=== PATIENT | male | born 1970 | race African-American/Black ===

== ENCOUNTER 2017-08-09 16:19 | Emergency (ER) | payer OTHER ==
[~2017-08-09] VITALS: Ht 175.3 cm; Wt 78.0 kg
[~2017-08-09 16:19] MED LIST: ASPI-825 PO; HUMLIS7525 SQ; HYDR-2924 PO; METO50 PO; PANT40TA25 PO; PHOSLOC PO
[2017-08-09] MEDS ORDERED: FOLI0.8T22 PO (16:33)
[2017-08-09 16:37] LABS: GLUCOSE,POINT OF CARE 94 MG/DL (70-110)
[2017-08-09 16:53] LABS: EOSINOPHILS % (AUTO) 1.5 % (1.0-6.0); HEMATOCRIT 38.1 % (41-53); HEMOGLOBIN 12.6 g/dL (13.5-17.5); LYMPHOCYTES # (AUTO) 1.8 K/uL (1.0-4.8); LYMPHOCYTES % (AUTO) 25.9 % (22.0-44.0); MEAN CORPUSCULAR HEMOGLOBIN 30.8 pg (26.0-34.0); MEAN CORPUSCULAR VOLUME 93 fL (80-100); MONOCYTES # (AUTO) 0.7 K/uL (0.1-1.0); MONOCYTES % (AUTO) 9.9 % (2.0-9.0); NEUTROPHILS # (AUTO) 4.4 K/uL (1.8-7.7); NEUTROPHILS % (AUTO) 61.7 % (40.0-70.0); PLATELET COUNT (AUTO) 205 K/uL (150-450); RED BLOOD CELL COUNT(AUTO) 4.08 MIL/uL (4.50-5.90); RED CELL DISTRIBUTION WIDTH 15.3 % (11.5-14.5)
[2017-08-09 17:01] LABS: ANION GAP 7 mmol/L (8-16); CALCIUM, TOTAL 9.2 mg/dL (8.8-10.5); CARBON DIOXIDE 33 mmol/L (22-29); CHLORIDE 98 mmol/L (98-107); CREATININE 5.22 mg/dL (0.60-1.30); GLOMERULAR FILTR. RATE CALC 14 mL/min (>60); GLUCOSE,RANDOM 85 mg/dL (70-110); POTASSIUM 4.2 mmol/L (3.5-5.1); SODIUM SERUM 138 mmol/L (136-145); UREA NITROGEN, BLOOD 15 mg/dL (7-18)
[2017-08-09 17:07] LABS: ALANINE AMINOTRANSFERASE 37 U/L (12-78); ALBUMIN 3.7 g/dL (3.4-5.0); ALKALINE PHOSPHATASE 144 U/L (46-116); ASPARTATE AMINOTRANSFERASE 14 U/L (15-37); BILIRUBIN,TOTAL 0.6 mg/dL (0.1-1.0); TOTAL PROTEIN, SERUM 8.4 g/dL (6.4-8.2)
[2017-08-09 17:12] LABS: GLUCOSE,POINT OF CARE 90 MG/DL (70-110)
[2017-08-09 17:48] LABS: GLUCOSE,POINT OF CARE 121 MG/DL (70-110)
[2017-08-09 19:34] VITALS: BP 185/102
== END 2017-08-09 20:02 | disposition home or self-care (01) ==
LOC: EMS 16:20
DX: T38.3X5A Adverse effect of insulin and oral hypoglycemic [antidiabetic] drugs, initial encounter (principal); E11.649 Type 2 diabetes mellitus with hypoglycemia without coma; E11.22 Type 2 diabetes mellitus with diabetic chronic kidney disease; I12.0 Hypertensive chronic kidney disease with stage 5 chronic kidney disease or end stage renal disease; N18.6 End stage renal disease; I10 Essential (primary) hypertension; Y92.89 Other specified places as the place of occurrence of the external cause; Z99.2 Dependence on renal dialysis; Z79.4 Long term (current) use of insulin
CPT/HCPCS: 36415; 80053; 82948; 82962; 85025; 93005; 99285; G0480

== ENCOUNTER 2019-03-18 15:23 | Emergency (ER) | payer OTHER ==
[~2019-03-18] VITALS: Ht 177.8 cm; Wt 89.3 kg
[~2019-03-18 15:23] MED LIST changes: +FOLI0.8T22 PO; -PANT40TA25 PO; -PHOSLOC PO
[2019-03-18 17:45] VITALS: BP 127/74
== END 2019-03-18 17:59 | disposition home or self-care (01) ==
LOC: EMS 15:24
DX: R60.0 Localized edema (principal); I12.0 Hypertensive chronic kidney disease with stage 5 chronic kidney disease or end stage renal disease; E11.22 Type 2 diabetes mellitus with diabetic chronic kidney disease; N18.6 End stage renal disease; Z99.2 Dependence on renal dialysis; Z79.82 Long term (current) use of aspirin; Z79.4 Long term (current) use of insulin; Z48.00 Encounter for change or removal of nonsurgical wound dressing

== ENCOUNTER 2024-06-12 06:28 | Emergency (ER) | payer OTHER ==
[~2024-06-12] VITALS: Ht 175.3 cm; Wt 90.0 kg
[~2024-06-12 06:28] MED LIST changes: -HYDR-2924 PO; +HYDR50TA36 PO
[2024-06-12 06:57] VITALS: BP 100/66; PULSE 68; RESP 16; TEMP 98.2; O2SAT 98
[2024-06-12] MEDS: ACETAMINOPHEN 500 MG TABLET PO ONE (08:27)
[2024-06-12] MEDS ORDERED: ACET-3385 PO (08:54)
[2024-06-12] MEDS: BACITRACIN 0.9 GM PACKET OINTMENT TP ONE (09:15)
== END 2024-06-12 09:21 | disposition home or self-care (01) ==
LOC: EMS 06:37
DX: S00.83XA Contusion of other part of head, initial encounter (principal); E11.22 Type 2 diabetes mellitus with diabetic chronic kidney disease; I12.0 Hypertensive chronic kidney disease with stage 5 chronic kidney disease or end stage renal disease; G44.309 Post-traumatic headache, unspecified, not intractable; N18.6 End stage renal disease; Z79.4 Long term (current) use of insulin; Z79.899 Other long term (current) drug therapy; Z99.2 Dependence on renal dialysis; Z98.890 Other specified postprocedural states; W01.0XXA Fall on same level from slipping, tripping and stumbling without subsequent striking against object, initial encounter; Y93.89 Activity, other specified; Y92.89 Other specified places as the place of occurrence of the external cause; Y99.8 Other external cause status
CPT/HCPCS: 70450; 70486; 72125; 99284

== ENCOUNTER 2024-12-05 06:22 | Inpatient (IN) | payer OTHER ==
[~2024-12-05] VITALS: Ht 175.3 cm; Wt 83.1 kg
[~2024-12-05 06:22] MED LIST changes: +ACET-3385 PO
[2024-12-05] MEDS: ONDANSETRON HCL 4 MG/2 ML VIAL IVP ONE (06:57)
[2024-12-05] MEDS: CEFEPIME HCL 2 GM in DEXTROSE 5%-WATER 50 ML IV ONE (07:02)
[2024-12-05 07:07] LABS: PLATELET COUNT (AUTO) 365 K/uL (150-450); RED BLOOD CELL COUNT(AUTO) 4.16 MIL/uL (4.50-5.90); RED CELL DISTRIBUTION WIDTH 15.5 % (11.5-14.5); WHITE BLOOD COUNT (AUTO) 15.7 K/uL (4.5-11.0)
[2024-12-05 07:53] LABS: ERYTHROCYTE SEDIMENTATION RATE > 130 MM/HR (0-20)
[2024-12-05] MEDS: VANCOMYCIN 1.25 GM/WATER(PEG) 250 ML IV ONE (07:56)
[2024-12-05 08:15] LABS: CALCIUM, TOTAL 10.9 mg/dL (8.8-10.5); CREATININE 8.61 mg/dL (0.60-1.30); GLOMERULAR FILTR. RATE CALC 8.0 mL/min (>60); GLUCOSE,RANDOM 68.0 mg/dL (70-110); SODIUM SERUM 133.0 mmol/L (136-145); UREA NITROGEN, BLOOD 33.0 mg/dL (7-18)
[2024-12-05 08:21] LABS: ASPARTATE AMINOTRANSFERASE 11 U/L (15-37); C-REACTIVE PROTEIN QUANT 19.56 mg/dL (0.00-0.30); TOTAL PROTEIN, SERUM 8.8 g/dL (6.4-8.2)
[2024-12-05 08:28] LABS: LACTIC ACID 2.1 mmol/L (0.4-2.0)
[2024-12-05 08:36] LABS: GLUCOMETER DEV NAME(LOC) ERT.7; GLUCOSE,POINT OF CARE 70 MG/DL (70-110)
[2024-12-05] MEDS ORDERED: ZOLPIDEM TARTRATE 5 MG TABLET PO PRN (09:00)
[2024-12-05] MEDS ORDERED: MAGNESIUM HYDROXIDE SUSPENSION 30 ML UDCUP PO PRN (09:00)
[2024-12-05] MEDS: INSULIN LISPRO PROTAM-LISPRO HUM 75/25 UNITS/ML SQ SCH (09:00)
[2024-12-05] MEDS ORDERED: ACETAMINOPHEN 325 MG TABLET PO PRN (09:00)
[2024-12-05] MEDS ORDERED: HYDROCODONE/ACETAMINOPHEN 5-325 MG TABLET PO PRN (09:00)
[2024-12-05] MEDS ORDERED: MORPHINE SULFATE 2 MG/ML SYRINGE IVP PRN (09:00)
[2024-12-05] MEDS ORDERED: BISACODYL 10 MG RECTAL RECTAL SUPPOSITORY PR PRN (09:00)
[2024-12-05] MEDS ORDERED: ONDANSETRON HCL 4 MG/2 ML VIAL IVP PRN (09:00)
[2024-12-05] MEDS: DOCUSATE SODIUM 100 MG CAPSULE PO SCH (09:00)
[2024-12-05] MEDS ORDERED: VANCOMYCIN 1GM/WATER(PEG/NADA) 200 ML IV PRN (09:30)
[2024-12-05] MEDS: METOPROLOL TARTRATE 50 MG TABLET PO SCH (09:56)
[2024-12-05] MEDS: PANTOPRAZOLE SODIUM 40 MG DR TABLET PO SCH (09:56)
[2024-12-05 10:06] LABS: GLUCOMETER DEV NAME(LOC) ERT.7; GLUCOSE,POINT OF CARE 79 MG/DL (70-110)
[2024-12-05] MEDS: PIPERACILLIN SODIUM/TAZOBACTAM 2.25 GM in DEXTROSE 5%-WATER 50 ML IV SCH (11:03)
[2024-12-05 12:21] VITALS: BP 115/78; PULSE 74; RESP 19; TEMP 99; O2SAT 100
[2024-12-05] MEDS: HEPARIN SODIUM,PORCINE 5,000 UNITS/ML VIAL SQ SCH (15:12)
[2024-12-05 16:00] VITALS: BP 100/59; PULSE 75; RESP 18; TEMP 99.5; O2SAT 97
[2024-12-05] MEDS ORDERED: DEXTROSE 50%-WATER 25 GM/50 ML SYRINGE IVP PRN (17:30)
[2024-12-05] MEDS: SEVELAMER CARBONATE 800 MG TABLET PO SCH (17:58)
[2024-12-05 20:00] VITALS: BP_SYST 89; BP_SYST 93; BP_SYST 99; BP_DIAS 40; BP_DIAS 51; BP_DIAS 56; PULSE 76; PULSE 77; PULSE 78; RESP 17; TEMP 99.7; O2SAT 98
[2024-12-05] MEDS: INSULIN LISPRO 100 UNITS/ML SQ PRN (21:55)
[2024-12-06] VITALS (14 sets, daily range): BP systolic 84–111; BP diastolic 42–69; PULSE 69–90; RESP 16–18; TEMP 97.8–99.1; O2SAT 96–99
[2024-12-06 06:19] LABS: PLATELET COUNT (AUTO) 303 K/uL (150-450); RED BLOOD CELL COUNT(AUTO) 3.70 MIL/uL (4.50-5.90); RED CELL DISTRIBUTION WIDTH 15.3 % (11.5-14.5); WHITE BLOOD COUNT (AUTO) 10.9 K/uL (4.5-11.0)
[2024-12-06 06:30] LABS: CALCIUM, TOTAL 10.5 mg/dL (8.8-10.5); CREATININE 10.2 mg/dL (0.60-1.30); GLOMERULAR FILTR. RATE CALC 6.0 mL/min (>60); GLUCOSE,RANDOM 199.0 mg/dL (70-110); SODIUM SERUM 130.0 mmol/L (136-145); UREA NITROGEN, BLOOD 45.0 mg/dL (7-18)
[2024-12-06] MEDS: CINACALCET HCL 30 MG TABLET PO SCH (08:31)
[2024-12-06] MEDS: VANCOMYCIN 1GM/WATER(PEG/NADA) 200 ML IV ONE (21:35)
[2024-12-07 04:45] VITALS: BP 132/83; PULSE 87; RESP 18; TEMP 98.3; O2SAT 98
[2024-12-07 06:06] LABS: GLUCOMETER DEV NAME(LOC) 4E.2; GLUCOSE,POINT OF CARE 132 MG/DL (70-110)
[2024-12-07 06:35] LABS: PLATELET COUNT (AUTO) 292 K/uL (150-450); RED BLOOD CELL COUNT(AUTO) 3.40 MIL/uL (4.50-5.90); RED CELL DISTRIBUTION WIDTH 15.7 % (11.5-14.5); WHITE BLOOD COUNT (AUTO) 10.7 K/uL (4.5-11.0)
[2024-12-07 06:50] LABS: CALCIUM, TOTAL 9.5 mg/dL (8.8-10.5); CREATININE 7.32 mg/dL (0.60-1.30); GLOMERULAR FILTR. RATE CALC 10.0 mL/min (>60); GLUCOSE,RANDOM 127.0 mg/dL (70-110); SODIUM SERUM 135.0 mmol/L (136-145); UREA NITROGEN, BLOOD 25.0 mg/dL (7-18)
[2024-12-07 07:51] VITALS: BP 110/66; PULSE 86; RESP 20; TEMP 98.8; O2SAT 99
[2024-12-07 11:50] LABS: GLUCOMETER DEV NAME(LOC) 4E.2; GLUCOSE,POINT OF CARE 109 MG/DL (70-110)
[2024-12-07 16:23] VITALS: BP 112/63; PULSE 84; RESP 20; TEMP 99.5; O2SAT 99
[2024-12-07] MEDS ORDERED: 0.9% SODIUM CHLORIDE 10 ML SYRINGE IVP ONE (16:37)
[2024-12-07] MEDS ORDERED: SODIUM CHLORIDE 0.9% 100 ML ONE (16:37)
[2024-12-07] MEDS ORDERED: IOHEXOL 350 MG/ML 100 ML VIAL ONE (16:37)
[2024-12-07 19:41] LABS: GLUCOMETER DEV NAME(LOC) 6N.2C; GLUCOSE,POINT OF CARE 106 MG/DL (70-110)
[2024-12-07 20:26] VITALS: BP 94/50; PULSE 87; RESP 18; TEMP 99.5; O2SAT 99
[2024-12-08] VITALS (13 sets, daily range): BP systolic 83–130; BP diastolic 53–79; PULSE 71–87; RESP 18–19; TEMP 97.8–99.5; O2SAT 96–100
[2024-12-08 05:56] LABS: GLUCOMETER DEV NAME(LOC) 6N.1C; GLUCOSE,POINT OF CARE 156 MG/DL (70-110)
[2024-12-08 05:56] LABS: GLUCOMETER DEV NAME(LOC) 6N.1C; GLUCOSE,POINT OF CARE 149 MG/DL (70-110)
[2024-12-08 06:19] LABS: PLATELET COUNT (AUTO) 289 K/uL (150-450); RED BLOOD CELL COUNT(AUTO) 3.32 MIL/uL (4.50-5.90); RED CELL DISTRIBUTION WIDTH 15.6 % (11.5-14.5); WHITE BLOOD COUNT (AUTO) 10.9 K/uL (4.5-11.0)
[2024-12-08 06:41] LABS: CALCIUM, TOTAL 9.8 mg/dL (8.8-10.5); CREATININE 9.9 mg/dL (0.60-1.30); GLOMERULAR FILTR. RATE CALC 7.0 mL/min (>60); GLUCOSE,RANDOM 142.0 mg/dL (70-110); SODIUM SERUM 134.0 mmol/L (136-145); UREA NITROGEN, BLOOD 40.0 mg/dL (7-18)
[2024-12-08] MEDS ORDERED: SODIUM CHLORIDE 0.9% 1,000 ML ONE (07:05)
[2024-12-08] MEDS: SODIUM CHLORIDE 0.9% 1,000 ML IV ONE (10:17)
[2024-12-08] MEDS: CHLORHEXIDINE GLUCONATE 2% TOWELETTE [2'S/6'S] TP ONE (10:17)
[2024-12-08] MEDS: ETHYL ALCOHOL 62% ANTISEPTIC NASAL SANITIZER 0.6 ML AMPUL NASAL ONE (10:17)
[2024-12-08] MEDS ORDERED: RINGERS SOLUTION,LACTATED 1,000 ML IV ONE ×2 (11:08→11:15)
[2024-12-08] MEDS: BUPIVACAINE HCL/PF 0.5% 30 ML VIAL ONE (12:30)
[2024-12-08] MEDS: BUPIVACAINE LIPOSOME/PF 1.3%-13.3MG/ML SUSP 20 ML VIAL INJ ONE (12:30)
[2024-12-08] MEDS ORDERED: MEPERIDINE-PF 25 MG/ML VIAL IVP PRN (12:45)
[2024-12-08] MEDS ORDERED: FentaNYL CITRATE PF 100 MCG/2 ML VIAL IVP PRN (12:45)
[2024-12-08] MEDS ORDERED: ONDANSETRON HCL 2 MG/ML 20 ML VIAL IV ONE (13:12)
[2024-12-08] MEDS ORDERED: PROPOFOL 1% ISO-OSM 1000 MG/100 ML BOTTLE ONE (13:12)
[2024-12-08] MEDS ORDERED: SUGAMMADEX SODIUM 200 MG/2 ML VIAL IVP ONE (13:12)
[2024-12-08] MEDS ORDERED: LIDOCAINE/PF 2% 5 ML VIAL ONE (13:12)
[2024-12-08] MEDS ORDERED: FentaNYL CITRATE PF 100 MCG/2 ML VIAL ONE (13:38)
[2024-12-08] MEDS ORDERED: MORPHINE SULFATE/PF 0.5 MG/ML 10 ML AMP ONE (13:38)
[2024-12-08] MEDS ORDERED: MIDAZOLAM HCL 2 MG/2 ML VIAL ONE (13:38)
[2024-12-08 17:57] LABS: GLUCOMETER DEV NAME(LOC) 5N.2C; GLUCOSE,POINT OF CARE 181 MG/DL (70-110)
[2024-12-08 17:57] LABS: GLUCOMETER DEV NAME(LOC) 5N.2C; GLUCOSE,POINT OF CARE 185 MG/DL (70-110)
[2024-12-08 17:57] LABS: GLUCOMETER DEV NAME(LOC) 5N.2C; GLUCOSE,POINT OF CARE 217 MG/DL (70-110)
[2024-12-08] MEDS ORDERED: OXYGEN THERAPY IH SCH (20:00)
[2024-12-08 20:10] LABS: GLUCOMETER DEV NAME(LOC) 5S.1D; GLUCOSE,POINT OF CARE 115 MG/DL (70-110)
[2024-12-08] MEDS ORDERED: SODIUM CHLORIDE 0.9% 250 ML IV ONE (20:19)
[2024-12-08 23:46] LABS: GLUCOMETER DEV NAME(LOC) 6N.1C; GLUCOSE,POINT OF CARE 97 MG/DL (70-110)
[2024-12-09] VITALS (13 sets, daily range): BP systolic 115–149; BP diastolic 65–90; PULSE 80–101; RESP 19–20; TEMP 98.8–99.7; O2SAT 98–100
[2024-12-09 07:21] LABS: GLUCOMETER DEV NAME(LOC) 6S.2; GLUCOSE,POINT OF CARE 139 MG/DL (70-110)
[2024-12-09 07:31] LABS: CALCIUM, TOTAL 10.1 mg/dL (8.8-10.5); CREATININE 6.76 mg/dL (0.60-1.30); GLOMERULAR FILTR. RATE CALC 10.0 mL/min (>60); GLUCOSE,RANDOM 135.0 mg/dL (70-110); SODIUM SERUM 137.0 mmol/L (136-145); UREA NITROGEN, BLOOD 28.0 mg/dL (7-18)
[2024-12-09 07:53] LABS: PHOSPHORUS 3.4 mg/dL (2.5-4.9)
[2024-12-09] MEDS: VANCOMYCIN 1GM/WATER(PEG/NADA) 200 ML IV ONE (12:26)
[2024-12-09] MEDS ORDERED: LIDOCAINE/PF 1% 30 ML VIAL ONE ×2 (14:35→15:04)
[2024-12-09] MEDS ORDERED: IODIXANOL 320 MG/ML 150 ML VIAL ONE (14:35)
[2024-12-09] MEDS ORDERED: SODIUM BICARBONATE 50 MEQ/50 ML VIAL ONE (14:35)
[2024-12-09] MEDS ORDERED: HEPARIN SODIUM 1000 UNITS/NS 500 ML ONE ×2 (14:35→15:06)
[2024-12-09] MEDS ORDERED: FentaNYL CITRATE PF 100 MCG/2 ML VIAL ONE (15:22)
[2024-12-09] MEDS ORDERED: MIDAZOLAM HCL 2 MG/2 ML VIAL ONE (15:22)
[2024-12-09] MEDS ORDERED: IODIXANOL 320 MG/ML 50 ML VIAL ONE (15:29)
[2024-12-09] MEDS: HEPARIN SODIUM 1000 UNITS/NS 1,000 ML IARTER ONE (15:55)
[2024-12-09] MEDS: LIDOCAINE 1% 30 ML/SOD BICARB 8.4% 4 ML SQ ONE (15:55)
[2024-12-09] MEDS: MIDAZOLAM HCL 2 MG/2 ML VIAL IVP ONE (15:56)
[2024-12-09] MEDS: IODIXANOL 320 MG/ML 50 ML VIAL IARTER ONE (15:56)
[2024-12-09] MEDS: FentaNYL CITRATE PF 100 MCG/2 ML VIAL IVP ONE (15:56)
[2024-12-09] MEDS: IODIXANOL 320 MG/ML 150 ML VIAL IARTER ONE (15:57)
[2024-12-09] MEDS: HEPARIN SODIUM,PORCINE 1,000 UNITS/ML 10 ML VIAL IVP ONE (16:10)
[2024-12-09] MEDS ORDERED: CLOPIDOGREL BISULFATE 75 MG TABLET ONE (17:16)
[2024-12-09] MEDS: CLOPIDOGREL BISULFATE 75 MG TABLET PO ONE (17:22)
[2024-12-09 19:02] LABS: GLUCOMETER DEV NAME(LOC) 5S.2D; GLUCOSE,POINT OF CARE 142 MG/DL (70-110)
[2024-12-09 19:02] LABS: GLUCOMETER DEV NAME(LOC) 5S.2D; GLUCOSE,POINT OF CARE 147 MG/DL (70-110)
[2024-12-09 19:02] LABS: GLUCOMETER DEV NAME(LOC) 5S.2D; GLUCOSE,POINT OF CARE 173 MG/DL (70-110)
[2024-12-09 21:01] LABS: GLUCOMETER DEV NAME(LOC) 6N.1C; GLUCOSE,POINT OF CARE 98 MG/DL (70-110)
[2024-12-09 22:36] LABS: GLUCOMETER DEV NAME(LOC) 6N.1C; GLUCOSE,POINT OF CARE 112 MG/DL (70-110)
[2024-12-10] VITALS (17 sets, daily range): BP systolic 95–124; BP diastolic 52–78; PULSE 79–98; RESP 18–20; TEMP 97.8–99.9; O2SAT 98–100
[2024-12-10 07:40] LABS: GLUCOMETER DEV NAME(LOC) 4E.2; GLUCOSE,POINT OF CARE 76 MG/DL (70-110)
[2024-12-10] MEDS: CLOPIDOGREL BISULFATE 75 MG TABLET PO SCH (09:00)
[2024-12-10] MEDS ORDERED: SODIUM CHLORIDE 0.9% 1,000 ML ONE (10:33)
[2024-12-10 12:26] LABS: GLUCOMETER DEV NAME(LOC) 4E.2; GLUCOSE,POINT OF CARE 133 MG/DL (70-110)
[2024-12-10] MEDS: ATORVASTATIN CALCIUM 40 MG TABLET PO SCH (14:59)
[2024-12-10 22:11] LABS: GLUCOMETER DEV NAME(LOC) 6N.1C; GLUCOSE,POINT OF CARE 124 MG/DL (70-110)
[2024-12-11 06:21] LABS: GLUCOMETER DEV NAME(LOC) 4E.2; GLUCOSE,POINT OF CARE 173 MG/DL (70-110)
[2024-12-11 06:55] VITALS: BP 123/70; PULSE 81; RESP 20; TEMP 98.9; O2SAT 100
[2024-12-11 07:30] LABS: GLUCOMETER DEV NAME(LOC) 6S.2; GLUCOSE,POINT OF CARE 107 MG/DL (70-110)
[2024-12-11 08:44] VITALS: BP 126/70; PULSE 79; RESP 18; TEMP 98.2; O2SAT 100
[2024-12-11 09:27] VITALS: PULSE 92
[2024-12-11] MEDS ORDERED: SODIUM CHLORIDE 0.9% 500 ML IV ONE (11:52)
[2024-12-11 12:30] LABS: GLUCOMETER DEV NAME(LOC) 6S.2; GLUCOSE,POINT OF CARE 130 MG/DL (70-110)
[2024-12-11] MEDS: FOLIC ACID/VIT B COMPLEX AND C TABLET PO SCH (13:45)
[2024-12-11 20:00] VITALS: BP 114/69; PULSE 86; RESP 18; TEMP 97.9; O2SAT 99
[2024-12-12 05:29] VITALS: BP 143/79; PULSE 88; RESP 18; TEMP 98.4; O2SAT 100
[2024-12-12 08:46] VITALS: BP 152/89; PULSE 88; RESP 18; TEMP 98; O2SAT 100
[2024-12-12] MEDS ORDERED: SEVE800T7 PO (11:14)
[2024-12-12] MEDS ORDERED: ATOR40TA71 PO (11:14)
[2024-12-12] MEDS ORDERED: CINA30TA5 PO (11:14)
[2024-12-12] MEDS ORDERED: FOLI0.8T54 PO (11:14)
[2024-12-12] MEDS ORDERED: CLOP75TA83 PO (11:14)
[2024-12-12] MEDS ORDERED: LINA5TAB PO (11:17)
[2024-12-12] MEDS ORDERED: VANCOMYCIN 750 MG/WATER(PEG) 150 ML IV ONE (22:00)
== END 2024-12-12 12:15 | disposition home or self-care (01) | DRG 181 ==
LOC: EMS 06:22 → EDH 08:47 → 5S 11:50 → 4E 12-06 21:12 → 6S 12-07 15:44
PROVIDERS: ADMIT Internal Medicine; ATTEND Internal Medicine
PROC: 5A1D70Z Performance of Urinary Filtration, Intermittent, Less than 6 Hours Per Day (ICD-10-PCS; 2024-12-06)
PROC: 0Y6N0ZB Detachment at Left Foot, Partial 2nd Ray, Open Approach (ICD-10-PCS; 2024-12-08)
PROC: 0Y6N0ZC Detachment at Left Foot, Partial 3rd Ray, Open Approach (ICD-10-PCS; 2024-12-08)
PROC: 0Y6N0ZD Detachment at Left Foot, Partial 4th Ray, Open Approach (ICD-10-PCS; 2024-12-08)
PROC: 0Y6N0ZF Detachment at Left Foot, Partial 5th Ray, Open Approach (ICD-10-PCS; 2024-12-08)
PROC: 5A1D70Z Performance of Urinary Filtration, Intermittent, Less than 6 Hours Per Day (ICD-10-PCS; 2024-12-08)
PROC: 0Y6N0Z9 Detachment at Left Foot, Partial 1st Ray, Open Approach (ICD-10-PCS; principal; 2024-12-08 12:20)
PROC: B4101ZZ Fluoroscopy of Abdominal Aorta using Low Osmolar Contrast (ICD-10-PCS; 2024-12-09)
PROC: 047L0Z1 Dilation of Left Femoral Artery using Drug-Coated Balloon, Open Approach (ICD-10-PCS; 2024-12-09)
PROC: B41G1ZZ Fluoroscopy of Left Lower Extremity Arteries using Low Osmolar Contrast (ICD-10-PCS; 2024-12-09)
PROC: 04CL3ZZ Extirpation of Matter from Left Femoral Artery, Percutaneous Approach (ICD-10-PCS; 2024-12-09)
PROC: 5A1D70Z Performance of Urinary Filtration, Intermittent, Less than 6 Hours Per Day (ICD-10-PCS; 2024-12-10)
DX: E11.52 Type 2 diabetes mellitus with diabetic peripheral angiopathy with gangrene (principal); I12.0 Hypertensive chronic kidney disease with stage 5 chronic kidney disease or end stage renal disease; E83.39 Other disorders of phosphorus metabolism; N18.6 End stage renal disease; M86.8X7 Other osteomyelitis, ankle and foot; E87.1 Hypo-osmolality and hyponatremia; E11.22 Type 2 diabetes mellitus with diabetic chronic kidney disease; D64.9 Anemia, unspecified; Z99.2 Dependence on renal dialysis; E11.69 Type 2 diabetes mellitus with other specified complication; E78.5 Hyperlipidemia, unspecified; E87.6 Hypokalemia; N25.81 Secondary hyperparathyroidism of renal origin; Z79.02 Long term (current) use of antithrombotics/antiplatelets; Z93.3 Colostomy status
CPT/HCPCS: 36200; 37229; 71045; 73706; 73718; 75630; 75716; 75962; 80048; 80076; 80202; 82962; 83605; 83690; 84100; 85025; 85651; 86140; 87040; 87081; 87340; 88305; 90935; 93005; 93925; 96365; 96367; 96375; 97116; 97162; 97167; 97530; 97535; 99285; C1724; C2623; G0378; J0666; J0692; J1644; J1815; J2250; J2274; J2405; J2543; J2704; J3010; J3490; J7030; J7040; J7050; J7060; J7120; Q9967; 36415-L1; 36415-TC

== ENCOUNTER 2025-01-04 10:04 | Emergency (ER) | payer OTHER ==
[~2025-01-04] VITALS: Ht 175.3 cm; Wt 86.0 kg
[~2025-01-04 10:04] MED LIST changes: -ACET-3385 PO; +ASPI-1444 PO; -ASPI-825 PO; +ATOR40TA71 PO; +CINA30TA5 PO; +CLOP75TA32 PO; -FOLI0.8T22 PO; +FOLI0.8T54 PO; +LINA5TAB PO; +SEVE800T7 PO; +[UNRECOGNIZED DRUG - REMARK] CERV
[2025-01-04 10:11] VITALS: TEMP 97.9
[2025-01-04 10:36] LABS: GLUCOMETER DEV NAME(LOC) ERT.7; GLUCOSE,POINT OF CARE 96 MG/DL (70-110)
[2025-01-04 10:58] LABS: PLATELET COUNT (AUTO) 227 K/uL (150-450); RED BLOOD CELL COUNT(AUTO) 2.66 MIL/uL (4.50-5.90); RED CELL DISTRIBUTION WIDTH 15.9 % (11.5-14.5); WHITE BLOOD COUNT (AUTO) 6.7 K/uL (4.5-11.0)
[2025-01-04 11:02] VITALS: BP 92/49; PULSE 74; RESP 16; O2SAT 95
[2025-01-04 11:06] LABS: CALCIUM, TOTAL 8.5 mg/dL (8.8-10.5); CREATININE 6.48 mg/dL (0.60-1.30); GLOMERULAR FILTR. RATE CALC 11.0 mL/min (>60); GLUCOSE,RANDOM 95.0 mg/dL (70-110); SODIUM SERUM 136.0 mmol/L (136-145); UREA NITROGEN, BLOOD 18.0 mg/dL (7-18)
== END 2025-01-04 13:42 | disposition home or self-care (01) ==
LOC: EMS 10:08
DX: S91.114D Laceration without foreign body of right lesser toe(s) without damage to nail, subsequent encounter (principal); E11.9 Type 2 diabetes mellitus without complications; I10 Essential (primary) hypertension; Z79.02 Long term (current) use of antithrombotics/antiplatelets; Z79.4 Long term (current) use of insulin; Z79.82 Long term (current) use of aspirin; Z79.84 Long term (current) use of oral hypoglycemic drugs; Z79.899 Other long term (current) drug therapy; Z99.2 Dependence on renal dialysis; X58.XXXD Exposure to other specified factors, subsequent encounter
CPT/HCPCS: 80048; 82962; 85025; 99283

== ENCOUNTER → 2025-01-13 | Emergency (ER) | payer OTHER ==
[~2025-01-13] VITALS: Ht 175.3 cm; Wt 85.0 kg
[~2025-01-13] MED LIST changes: +FLUORESCEIN SODIUM 1 MG STRIP ONE
[2025-01-13 08:05] VITALS: TEMP 98.1
[2025-01-13 08:25] LABS: GLUCOMETER DEV NAME(LOC) ERT.7; GLUCOSE,POINT OF CARE 67 MG/DL (70-110)
[2025-01-13 08:58] VITALS: BP 119/65; PULSE 76; RESP 16; O2SAT 99
[2025-01-13 09:16] LABS: GLUCOMETER DEV NAME(LOC) ER.7; GLUCOSE,POINT OF CARE 70 MG/DL (70-110)
[2025-01-13] MEDS: HYDROGEN PEROXIDE 3% 118 ML SOLUTION TP ONE (09:47)
[2025-01-13] MEDS: BACITRACIN 0.9 GM PACKET OINTMENT TP ONE (09:47)
== END | disposition still patient (30) ==
LOC: EMS 08:02
DX: M86.8X7 Other osteomyelitis, ankle and foot (principal); E11.69 Type 2 diabetes mellitus with other specified complication; I10 Essential (primary) hypertension; Z79.02 Long term (current) use of antithrombotics/antiplatelets; Z79.4 Long term (current) use of insulin; Z79.82 Long term (current) use of aspirin; Z79.84 Long term (current) use of oral hypoglycemic drugs; Z79.899 Other long term (current) drug therapy; Z99.2 Dependence on renal dialysis; Z98.890 Other specified postprocedural states
CPT/HCPCS: 82962; 99283

== ENCOUNTER 2025-01-20 10:13 | Inpatient (IN) | payer OTHER ==
[~2025-01-20] VITALS: Ht 175.3 cm; Wt 93.5 kg
[~2025-01-20 10:13] MED LIST changes: -FLUORESCEIN SODIUM 1 MG STRIP ONE
[2025-01-20 10:51] LABS: GLUCOMETER DEV NAME(LOC) ERT.7; GLUCOSE,POINT OF CARE 82 MG/DL (70-110)
[2025-01-20 10:55] LABS: PLATELET COUNT (AUTO) 249 K/uL (150-450); RED BLOOD CELL COUNT(AUTO) 3.58 MIL/uL (4.50-5.90); RED CELL DISTRIBUTION WIDTH 15.4 % (11.5-14.5); WHITE BLOOD COUNT (AUTO) 6.7 K/uL (4.5-11.0)
[2025-01-20 11:04] LABS: CALCIUM, TOTAL 8.4 mg/dL (8.8-10.5); CREATININE 6.45 mg/dL (0.60-1.30); GLOMERULAR FILTR. RATE CALC 11 mL/min (>60); GLUCOSE,RANDOM 96 mg/dL (70-110); SODIUM SERUM 137 mmol/L (136-145); UREA NITROGEN, BLOOD 23 mg/dL (7-18)
[2025-01-20 11:10] LABS: ASPARTATE AMINOTRANSFERASE 15.0 U/L (15-37); CREATINE KINASE, TOTAL ONLY 62.0 U/L (39-308); TOTAL PROTEIN, SERUM 8.9 g/dL (6.4-8.2)
[2025-01-20 11:11] LABS: TROPONIN I-HIGH SENSITIVITY 9 ng/L (<76)
[2025-01-20] MEDS ORDERED: DEXTROSE 50%-WATER 25 GM/50 ML SYRINGE IVP PRN (14:00)
[2025-01-20] MEDS ORDERED: 0.9% SODIUM CHLORIDE 10 ML SYRINGE IVP PRN (14:00)
[2025-01-20] MEDS ORDERED: ONDANSETRON HCL 4 MG/2 ML VIAL IVP PRN (14:00)
[2025-01-20] MEDS ORDERED: INSULIN LISPRO 100 UNITS/ML SQ PRN (14:00)
[2025-01-20 14:35] LABS: CALCIUM, TOTAL 8.6 mg/dL (8.8-10.5); CREATININE 6.81 mg/dL (0.60-1.30); GLOMERULAR FILTR. RATE CALC 10 mL/min (>60); GLUCOSE,RANDOM 89 mg/dL (70-110); SODIUM SERUM 136 mmol/L (136-145); UREA NITROGEN, BLOOD 24 mg/dL (7-18)
[2025-01-20 14:40] LABS: ASPARTATE AMINOTRANSFERASE 14 U/L (15-37); LACTATE DEHYDROGENASE 217 U/L (85-227); TOTAL PROTEIN, SERUM 9.6 g/dL (6.4-8.2)
[2025-01-20 14:45] LABS: LACTIC ACID 0.5 mmol/L (0.4-2.0)
[2025-01-20] MEDS: SODIUM CHLORIDE 0.9% 250 ML IV ONE (14:58)
[2025-01-20] MEDS: HEPARIN SODIUM,PORCINE 5,000 UNITS/ML VIAL SQ SCH (15:54)
[2025-01-20 16:19] LABS: TROPONIN I-HIGH SENSITIVITY 8 ng/L (<76)
[2025-01-20] MEDS ORDERED: VANCOMYCIN HCL 1 GM/D5% WATER 200 ML IV PRN (19:15)
[2025-01-20 20:25] LABS: GLUCOMETER DEV NAME(LOC) ER.7; GLUCOSE,POINT OF CARE 90 MG/DL (70-110)
[2025-01-20] MEDS: DOCUSATE SODIUM 100 MG CAPSULE PO SCH (21:00)
[2025-01-20 21:05] VITALS: BP 111/84; PULSE 94; RESP 18; TEMP 98.6; O2SAT 97
[2025-01-20] MEDS: VANCOMYCIN 1GM/WATER(PEG/NADA) 200 ML IV ONE (21:17)
[2025-01-20] MEDS ORDERED: SODIUM CHLORIDE 0.9% 250 ML IV ONE (21:20)
[2025-01-20 22:00] LABS: TROPONIN I-HIGH SENSITIVITY 8 ng/L (<76)
[2025-01-21] VITALS (13 sets, daily range): BP systolic 86–124; BP diastolic 55–85; PULSE 73–84; RESP 17–18; TEMP 98.1–98.4; O2SAT 95–100
[2025-01-21 06:06] LABS: PLATELET COUNT (AUTO) 217 K/uL (150-450); RED BLOOD CELL COUNT(AUTO) 3.22 MIL/uL (4.50-5.90); RED CELL DISTRIBUTION WIDTH 15.6 % (11.5-14.5); WHITE BLOOD COUNT (AUTO) 5.8 K/uL (4.5-11.0)
[2025-01-21 06:11] LABS: GLUCOMETER DEV NAME(LOC) 5N.2C; GLUCOSE,POINT OF CARE 76 MG/DL (70-110)
[2025-01-21 06:24] LABS: CALCIUM, TOTAL 8.3 mg/dL (8.8-10.5); CREATININE 8.03 mg/dL (0.60-1.30); GLOMERULAR FILTR. RATE CALC 9.0 mL/min (>60); GLUCOSE,RANDOM 76.0 mg/dL (70-110); SODIUM SERUM 137.0 mmol/L (136-145); UREA NITROGEN, BLOOD 33.0 mg/dL (7-18)
[2025-01-21 06:40] LABS: TROPONIN I-HIGH SENSITIVITY 8 ng/L (<76)
[2025-01-21] MEDS: SEVELAMER CARBONATE 800 MG TABLET PO SCH (08:48)
[2025-01-21] MEDS: CINACALCET HCL 30 MG TABLET PO SCH (08:48)
[2025-01-21] MEDS: CLOPIDOGREL BISULFATE 75 MG TABLET PO SCH (08:49)
[2025-01-21] MEDS: FOLIC ACID/VIT B COMPLEX AND C TABLET PO SCH (08:49)
[2025-01-21] MEDS: ASPIRIN 81 MG DR TABLET PO SCH (08:49)
[2025-01-21] MEDS: ATORVASTATIN CALCIUM 40 MG TABLET PO SCH (08:49)
[2025-01-21] MEDS ORDERED: SODIUM CHLORIDE 0.9% 2,000 ML ONE (10:24)
[2025-01-21 16:56] LABS: GLUCOMETER DEV NAME(LOC) 5N.2C; GLUCOSE,POINT OF CARE 119 MG/DL (70-110)
[2025-01-21 18:16] LABS: GLUCOMETER DEV NAME(LOC) 5N.2C; GLUCOSE,POINT OF CARE 119 MG/DL (70-110)
[2025-01-21] MEDS: ACETAMINOPHEN 325 MG TABLET PO PRN (18:17)
[2025-01-21] MEDS ORDERED: CINA30TA32 PO (20:19)
[2025-01-21] MEDS ORDERED: AMLO10TA55 PO (20:19)
[2025-01-21] MEDS ORDERED: PIPERACILLIN SODIUM/TAZOBACTAM 0.75 GM in DEXTROSE 5%-WATER 50 ML IV PRN (20:30)
[2025-01-21] MEDS: ALBUMIN HUMAN 25%-25GM/100ML 100 ML IV ONE (21:43)
[2025-01-21] MEDS: PIPERACILLIN SODIUM/TAZOBACTAM 2.25 GM in DEXTROSE 5%-WATER 50 ML IV SCH (22:00)
[2025-01-22] VITALS (7 sets, daily range): BP systolic 102–139; BP diastolic 59–94; PULSE 69–89; RESP 17–22; TEMP 97.7–98.6; O2SAT 94–100
[2025-01-22 07:20] LABS: CALCIUM, TOTAL 8.9 mg/dL (8.8-10.5); CREATININE 6.22 mg/dL (0.60-1.30); GLOMERULAR FILTR. RATE CALC 11.0 mL/min (>60); GLUCOSE,RANDOM 83.0 mg/dL (70-110); SODIUM SERUM 138.0 mmol/L (136-145); UREA NITROGEN, BLOOD 25.0 mg/dL (7-18)
[2025-01-22] MEDS: CLINDAMYCIN 900 MG/D5% WATER 50 ML IV SCH (07:46)
[2025-01-22] MEDS ORDERED: -POST HEMODIALYSIS NOTE- MISC SCH (09:00)
[2025-01-22 12:16] LABS: GLUCOMETER DEV NAME(LOC) 5N.2C; GLUCOSE,POINT OF CARE 88 MG/DL (70-110)
[2025-01-22 12:16] LABS: GLUCOMETER DEV NAME(LOC) 5N.2C; GLUCOSE,POINT OF CARE 94 MG/DL (70-110)
[2025-01-22 12:16] LABS: GLUCOMETER DEV NAME(LOC) 5N.2C; GLUCOSE,POINT OF CARE 135 MG/DL (70-110)
[2025-01-22 20:25] LABS: GLUCOMETER DEV NAME(LOC) 5N.2C; GLUCOSE,POINT OF CARE 97 MG/DL (70-110)
[2025-01-23] VITALS (7 sets, daily range): BP systolic 107–123; BP diastolic 9–76; PULSE 14–97; RESP 14–18; TEMP 97–98.9; O2SAT 99–100
[2025-01-23 03:51] LABS: GLUCOMETER DEV NAME(LOC) 5S.1E; GLUCOSE,POINT OF CARE 136 MG/DL (70-110)
[2025-01-23] MEDS ORDERED: SODIUM CHLORIDE 0.9% 1,000 ML ONE (07:32)
[2025-01-23] MEDS: ETHYL ALCOHOL 62% ANTISEPTIC NASAL SANITIZER 0.6 ML AMPUL NASAL ONE (07:49)
[2025-01-23] MEDS: CHLORHEXIDINE GLUCONATE 2% TOWELETTE [2'S/6'S] TP ONE (07:50)
[2025-01-23] MEDS: LIDOCAINE/PF 1% 30 ML VIAL ONE (08:15)
[2025-01-23] MEDS: BUPIVACAINE HCL/PF 0.25% 30 ML VIAL ONE (08:15)
[2025-01-23 08:31] LABS: GLUCOMETER DEV NAME(LOC) 5S.1E; GLUCOSE,POINT OF CARE 87 MG/DL (70-110)
[2025-01-23] MEDS ORDERED: PROPOFOL 1% ISO-OSM 1000 MG/100 ML BOTTLE ONE (12:00)
[2025-01-23] MEDS ORDERED: PROPOFOL 1% 20 ML VIAL IVP ONE (12:00)
[2025-01-23] MEDS ORDERED: LIDOCAINE/PF 2% 5 ML SYRINGE IVP ONE (12:00)
[2025-01-23 18:06] LABS: GLUCOMETER DEV NAME(LOC) 5S.1E; GLUCOSE,POINT OF CARE 113 MG/DL (70-110)
[2025-01-23 18:06] LABS: GLUCOMETER DEV NAME(LOC) 5S.1E; GLUCOSE,POINT OF CARE 119 MG/DL (70-110)
[2025-01-23] MEDS ORDERED: SODIUM CHLORIDE 0.9% 500 ML IV ONE (23:18)
[2025-01-24] VITALS (13 sets, daily range): BP systolic 113–139; BP diastolic 66–95; PULSE 79–91; RESP 18–20; TEMP 98–98.6; O2SAT 97–100
[2025-01-24 11:15] LABS: GLUCOMETER DEV NAME(LOC) 5S.1E; GLUCOSE,POINT OF CARE 105 MG/DL (70-110)
[2025-01-24 20:01] LABS: GLUCOMETER DEV NAME(LOC) 6N.1C; GLUCOSE,POINT OF CARE 91 MG/DL (70-110)
[2025-01-24 20:01] LABS: GLUCOMETER DEV NAME(LOC) 6N.1C; GLUCOSE,POINT OF CARE 122 MG/DL (70-110)
[2025-01-24 20:01] LABS: GLUCOMETER DEV NAME(LOC) 6N.1C; GLUCOSE,POINT OF CARE 133 MG/DL (70-110)
[2025-01-24 20:36] LABS: GLUCOMETER DEV NAME(LOC) 6N.1C; GLUCOSE,POINT OF CARE 143 MG/DL (70-110)
[2025-01-25 05:00] VITALS: BP 111/68; PULSE 86; RESP 18; TEMP 98.1; O2SAT 96
[2025-01-25 06:11] LABS: GLUCOMETER DEV NAME(LOC) 6N.1C; GLUCOSE,POINT OF CARE 84 MG/DL (70-110)
[2025-01-25 06:34] LABS: PLATELET COUNT (AUTO) 216 K/uL (150-450); RED BLOOD CELL COUNT(AUTO) 3.12 MIL/uL (4.50-5.90); RED CELL DISTRIBUTION WIDTH 15.5 % (11.5-14.5); WHITE BLOOD COUNT (AUTO) 5.8 K/uL (4.5-11.0)
[2025-01-25 06:35] LABS: ASPARTATE AMINOTRANSFERASE 13.0 U/L (15-37); C-REACTIVE PROTEIN QUANT 0.27 mg/dL (0.00-0.30); CALCIUM, TOTAL 8.5 mg/dL (8.8-10.5); CREATININE 7.32 mg/dL (0.60-1.30); GLOMERULAR FILTR. RATE CALC 10.0 mL/min (>60); GLUCOSE,RANDOM 77.0 mg/dL (70-110); SODIUM SERUM 135.0 mmol/L (136-145); TOTAL PROTEIN, SERUM 7.7 g/dL (6.4-8.2); UREA NITROGEN, BLOOD 32.0 mg/dL (7-18)
[2025-01-25 08:41] VITALS: BP 108/63; PULSE 82; RESP 17; TEMP 97.3; O2SAT 95
[2025-01-25 16:36] VITALS: BP 126/70; PULSE 92; RESP 18; TEMP 98.4; O2SAT 100
[2025-01-25 19:50] VITALS: BP 97/60; PULSE 93; RESP 18; TEMP 98.6; O2SAT 98
[2025-01-25 22:01] LABS: GLUCOMETER DEV NAME(LOC) 6N.2C; GLUCOSE,POINT OF CARE 139 MG/DL (70-110)
[2025-01-25 23:36] LABS: GLUCOMETER DEV NAME(LOC) 6N.1C; GLUCOSE,POINT OF CARE 117 MG/DL (70-110)
[2025-01-25 23:36] LABS: GLUCOMETER DEV NAME(LOC) 6N.1C; GLUCOSE,POINT OF CARE 128 MG/DL (70-110)
[2025-01-26] VITALS (13 sets, daily range): BP systolic 114–158; BP diastolic 71–100; PULSE 80–98; RESP 18–20; TEMP 98.1–98.2; O2SAT 99–100
[2025-01-26 06:50] LABS: GLUCOMETER DEV NAME(LOC) 6N.1C; GLUCOSE,POINT OF CARE 85 MG/DL (70-110)
[2025-01-26] MEDS: CASPOFUNGIN ACETATE 70 MG in SODIUM CHLORIDE 0.9% 250 ML IV ONE (17:32)
[2025-01-26 18:51] LABS: GLUCOMETER DEV NAME(LOC) 6N.1C; GLUCOSE,POINT OF CARE 116 MG/DL (70-110)
[2025-01-26] MEDS: SULFAMETHOX/TRIMETH DS 800-160 MG/TABLET PO ONE (21:35)
[2025-01-26 22:45] LABS: GLUCOMETER DEV NAME(LOC) 6N.2C; GLUCOSE,POINT OF CARE 134 MG/DL (70-110)
[2025-01-27 05:37] VITALS: BP 128/78; PULSE 83; RESP 19; TEMP 97.9; O2SAT 100
[2025-01-27 06:10] LABS: GLUCOMETER DEV NAME(LOC) 6N.2C; GLUCOSE,POINT OF CARE 108 MG/DL (70-110)
[2025-01-27 06:51] LABS: PLATELET COUNT (AUTO) 216 K/uL (150-450); RED BLOOD CELL COUNT(AUTO) 3.41 MIL/uL (4.50-5.90); RED CELL DISTRIBUTION WIDTH 16.3 % (11.5-14.5); WHITE BLOOD COUNT (AUTO) 5.2 K/uL (4.5-11.0)
[2025-01-27 07:05] LABS: ASPARTATE AMINOTRANSFERASE 17.0 U/L (15-37); CALCIUM, TOTAL 8.9 mg/dL (8.8-10.5); CREATININE 6.59 mg/dL (0.60-1.30); GLOMERULAR FILTR. RATE CALC 11.0 mL/min (>60); GLUCOSE,RANDOM 95.0 mg/dL (70-110); SODIUM SERUM 137.0 mmol/L (136-145); TOTAL PROTEIN, SERUM 7.9 g/dL (6.4-8.2); UREA NITROGEN, BLOOD 27.0 mg/dL (7-18)
[2025-01-27 08:07] VITALS: BP 126/78; PULSE 86; RESP 18; TEMP 98.1; O2SAT 100
[2025-01-27] MEDS: SULFAMETHOX/TRIMETH DS 800-160 MG/TABLET PO SCH (08:15)
[2025-01-27] MEDS: CASPOFUNGIN ACETATE 50 MG in SODIUM CHLORIDE 0.9% 250 ML IV SCH (14:12)
[2025-01-27 14:31] LABS: GLUCOMETER DEV NAME(LOC) 6N.2C; GLUCOSE,POINT OF CARE 111 MG/DL (70-110)
[2025-01-27 18:10] LABS: GLUCOMETER DEV NAME(LOC) 6N.2C; GLUCOSE,POINT OF CARE 126 MG/DL (70-110)
[2025-01-27 19:52] VITALS: BP 100/65; PULSE 90; RESP 18; TEMP 98.4; O2SAT 98
[2025-01-27 20:30] VITALS: BP 94/63; RESP 18; O2SAT 98
[2025-01-27 20:55] LABS: GLUCOMETER DEV NAME(LOC) 6N.1C; GLUCOSE,POINT OF CARE 132 MG/DL (70-110)
[2025-01-28] VITALS (13 sets, daily range): BP systolic 100–156; BP diastolic 62–89; PULSE 83–96; RESP 18; TEMP 97.9–98.2; O2SAT 97–100
[2025-01-28 06:06] LABS: GLUCOMETER DEV NAME(LOC) 6N.2C; GLUCOSE,POINT OF CARE 109 MG/DL (70-110)
[2025-01-28] MEDS ORDERED: SODIUM CHLORIDE 0.9% 1,000 ML ONE ×2 (12:34)
[2025-01-28 13:21] LABS: GLUCOMETER DEV NAME(LOC) 6N.2C; GLUCOSE,POINT OF CARE 110 MG/DL (70-110)
[2025-01-28 18:10] LABS: GLUCOMETER DEV NAME(LOC) 6N.2C; GLUCOSE,POINT OF CARE 103 MG/DL (70-110)
[2025-01-28] MEDS: VANCOMYCIN 1GM/WATER(PEG/NADA) 200 ML IV ONE (20:30)
[2025-01-28 20:35] LABS: GLUCOMETER DEV NAME(LOC) 6N.1C; GLUCOSE,POINT OF CARE 168 MG/DL (70-110)
[2025-01-28] MEDS ORDERED: SODIUM CHLORIDE 0.9% 250 ML IV ONE (20:55)
[2025-01-29 04:54] VITALS: BP 128/75; PULSE 92; RESP 19; TEMP 98.1; O2SAT 99
[2025-01-29 06:01] LABS: GLUCOMETER DEV NAME(LOC) 6N.1C; GLUCOSE,POINT OF CARE 121 MG/DL (70-110)
[2025-01-29 08:22] VITALS: BP 142/82; PULSE 89; RESP 20; TEMP 98.6; O2SAT 100
[2025-01-29 11:45] LABS: GLUCOMETER DEV NAME(LOC) 6N.1C; GLUCOSE,POINT OF CARE 110 MG/DL (70-110)
[2025-01-29 15:29] VITALS: BP 112/79; PULSE 92; RESP 17; TEMP 98.2; O2SAT 99
[2025-01-29 17:56] LABS: GLUCOMETER DEV NAME(LOC) 6N.1C; GLUCOSE,POINT OF CARE 104 MG/DL (70-110)
[2025-01-29 19:58] VITALS: BP 134/85; PULSE 90; RESP 18; TEMP 98.7; O2SAT 100
[2025-01-29 20:45] LABS: GLUCOMETER DEV NAME(LOC) 6N.2C; GLUCOSE,POINT OF CARE 151 MG/DL (70-110)
[2025-01-30 05:37] VITALS: BP 141/83; PULSE 92; RESP 19; TEMP 98.2; O2SAT 99
[2025-01-30 05:51] LABS: GLUCOMETER DEV NAME(LOC) 6N.2C; GLUCOSE,POINT OF CARE 73 MG/DL (70-110)
[2025-01-30 08:14] VITALS: BP 140/90; PULSE 87; RESP 18; TEMP 97.9; O2SAT 100
[2025-01-30 08:27] LABS: PLATELET COUNT (AUTO) 193 K/uL (150-450); RED BLOOD CELL COUNT(AUTO) 3.27 MIL/uL (4.50-5.90); RED CELL DISTRIBUTION WIDTH 15.9 % (11.5-14.5); WHITE BLOOD COUNT (AUTO) 5.2 K/uL (4.5-11.0)
[2025-01-30 08:47] LABS: ASPARTATE AMINOTRANSFERASE 22.0 U/L (15-37); CALCIUM, TOTAL 9.3 mg/dL (8.8-10.5); CREATININE 8.53 mg/dL (0.60-1.30); GLOMERULAR FILTR. RATE CALC 8.0 mL/min (>60); GLUCOSE,RANDOM 114.0 mg/dL (70-110); SODIUM SERUM 136.0 mmol/L (136-145); TOTAL PROTEIN, SERUM 7.7 g/dL (6.4-8.2); UREA NITROGEN, BLOOD 47.0 mg/dL (7-18)
[2025-01-30 19:36] VITALS: BP 124/83; PULSE 85; RESP 18; TEMP 98.4; O2SAT 100
[2025-01-30 20:45] LABS: GLUCOMETER DEV NAME(LOC) 6N.1C; GLUCOSE,POINT OF CARE 162 MG/DL (70-110)
[2025-01-31] VITALS (13 sets, daily range): BP systolic 116–149; BP diastolic 58–88; PULSE 80–90; RESP 18–20; TEMP 97.6–98.6; O2SAT 99–100
[2025-01-31 06:21] LABS: GLUCOMETER DEV NAME(LOC) 6N.1C; GLUCOSE,POINT OF CARE 99 MG/DL (70-110)
[2025-01-31 11:20] LABS: CALCIUM, TOTAL 9.1 mg/dL (8.8-10.5); CREATININE 10.62 mg/dL (0.60-1.30); GLOMERULAR FILTR. RATE CALC 6.0 mL/min (>60); GLUCOSE,RANDOM 118.0 mg/dL (70-110); SODIUM SERUM 135.0 mmol/L (136-145); UREA NITROGEN, BLOOD 60.0 mg/dL (7-18)
[2025-01-31 11:23] LABS: PHOSPHORUS 6.5 mg/dL (2.5-4.9)
[2025-01-31] MEDS ORDERED: SODIUM CHLORIDE 0.9% 1,000 ML ONE ×2 (14:06)
[2025-01-31 20:46] LABS: GLUCOMETER DEV NAME(LOC) 6N.1C; GLUCOSE,POINT OF CARE 157 MG/DL (70-110)
[2025-02-01 04:36] LABS: GLUCOMETER DEV NAME(LOC) 6N.2C; GLUCOSE,POINT OF CARE 90 MG/DL (70-110)
[2025-02-01 06:31] LABS: GLUCOMETER DEV NAME(LOC) 6N.1C; GLUCOSE,POINT OF CARE 81 MG/DL (70-110)
[2025-02-01 08:00] VITALS: BP 148/89; PULSE 90; RESP 20; TEMP 98.4; O2SAT 100
[2025-02-01] MEDS: SULFAMETHOX/TRIMETH DS 800-160 MG/TABLET PO SCH (08:28)
[2025-02-06] MEDS ORDERED: SULFAMETHOX/TRIMETH DS 800-160 MG/TABLET PO SCH (09:00)
== END 2025-02-01 10:35 | disposition left against medical advice (07) | DRG 314 ==
LOC: EMS 10:20 → EDH 13:56 → 5S 20:12 → 6S 01-23 22:25
PROVIDERS: ADMIT Internal Medicine; ATTEND Internal Medicine
PROC: 5A1D70Z Performance of Urinary Filtration, Intermittent, Less than 6 Hours Per Day (ICD-10-PCS; 2025-01-21)
PROC: 0QBP0ZZ Excision of Left Metatarsal, Open Approach (ICD-10-PCS; principal; 2025-01-23 08:00)
PROC: 5A1D70Z Performance of Urinary Filtration, Intermittent, Less than 6 Hours Per Day (ICD-10-PCS; 2025-01-24)
PROC: 5A1D70Z Performance of Urinary Filtration, Intermittent, Less than 6 Hours Per Day (ICD-10-PCS; 2025-01-26)
PROC: 5A1D70Z Performance of Urinary Filtration, Intermittent, Less than 6 Hours Per Day (ICD-10-PCS; 2025-01-28)
PROC: 5A1D70Z Performance of Urinary Filtration, Intermittent, Less than 6 Hours Per Day (ICD-10-PCS; 2025-01-31)
DX: E11.69 Type 2 diabetes mellitus with other specified complication (principal); M86.8X7 Other osteomyelitis, ankle and foot; I12.0 Hypertensive chronic kidney disease with stage 5 chronic kidney disease or end stage renal disease; N18.6 End stage renal disease; D63.1 Anemia in chronic kidney disease; E83.39 Other disorders of phosphorus metabolism; L08.9 Local infection of the skin and subcutaneous tissue, unspecified; E11.628 Type 2 diabetes mellitus with other skin complications; E78.5 Hyperlipidemia, unspecified; E11.22 Type 2 diabetes mellitus with diabetic chronic kidney disease; R74.8 Abnormal levels of other serum enzymes; I95.9 Hypotension, unspecified; I70.203 Unspecified atherosclerosis of native arteries of extremities, bilateral legs; N25.81 Secondary hyperparathyroidism of renal origin; Y83.5 Amputation of limb(s) as the cause of abnormal reaction of the patient, or of later complication, without mention of misadventure at the time of the procedure; T81.30XA Disruption of wound, unspecified, initial encounter; Z82.49 Family history of ischemic heart disease and other diseases of the circulatory system; Z83.3 Family history of diabetes mellitus; Z91.199 Patient's noncompliance with other medical treatment and regimen due to unspecified reason; Z99.2 Dependence on renal dialysis
CPT/HCPCS: 71045; 73718; 80048; 80053; 80076; 80202; 82550; 82962; 83605; 83615; 83735; 83880; 84100; 84145; 84484; 85025; 85379; 85610; 85730; 86140; 87040; 87070; 87081; 87186; 87205; 87340; 88307; 88311; 90935; 93005; 93306; 93925; 97116; 97163; 97166; 97530; 97535; 99285; G0378; J0637; J0713; J1644; J2543; J2704; J3490; J7030; J7040; J7050; J7060; P9046; 36415-L1; 36415-TC